=== PATIENT | female | born 1965 | race Caucasian/White ===

== ENCOUNTER 2017-03-07 08:57 | Emergency (ER) | payer SELFPAY ==
[2017-03-07 09:42] LABS: #Basophils 0.1 thou/uL (0.0-0.2); #Eosinphils 0.3 thou/uL (0.0-0.7); #Lymphocytes 2.5 thou/uL (1.20-3.40); #Monocytes 0.8 thou/uL (0.11-0.59); #Neutrophils 9.2 thou/uL (1.40-6.50); %Basophils 0.9 % (0.0-1.0); %Lymphocytes 19.4 % (21.0-51.0); %Monocytes 6.3 % (0.0-10.0); Hematocrit 44.7 % (36.0-47.0); Mean Platelet Volume 9.2 fL (7.4-10.4); Red Blood Cell (RBC) Count 4.87 mill/uL (4.20-5.40); White Blood Cell (WBC) Count 12.8 thou/uL (4.8-10.8)
[2017-03-07 10:05] LABS: ALT (SGPT) 24 U/L (8-55); AST (SGOT) 18 U/L (5-34); Alkaline Phosphatase 130 U/L (40-150); Anion Gap 13 mmol/L (10-20); BUN (Urea Nitrogen) 12 mg/dL (9.8-20.1); Bilirubin, Total 0.4 mg/dL (0.2-1.2); Calc. Creatinine Clearance 0 mL/min (70-130); Calcium 8.9 mg/dL (7.8-10.44); Carbon Dioxide 23 mmol/L (22-29); Chloride 105 mmol/L (98-107); Estimated GFR-MDRD Greater than 90; Globulin 3.3 g/dL (2.4-3.5)
[2017-03-07 10:08] LABS: Bilirubin Negative (Negative); Blood, Urine Large (Negative); Glucose, Urine (Dipstick) Negative (Negative); Ketone, Urine Trace mg/dL (Negative); Nitrite Negative (Negative); Protein, Urine (Dipstick) 100 mg/dL (Neg-Trace)
[2017-03-07 10:10] LABS: Bacteria/HPF Rare-Few HPF (None Seen); Hyaline Casts/LPF 0-3 HYALINE CAST LPF (0-3 Hyaline); RBC/HPF GREATER THAN 50-TNTC HPF (0-3); Squamous Epithelial 0-3 HPF (0-3)
== END 2017-03-07 10:08 | disposition home or self-care (01) ==
LOC: ERS 08:57
DX: N94.6 Dysmenorrhea, unspecified (principal); E66.9 Obesity, unspecified; Z79.899 Other long term (current) drug therapy
CPT/HCPCS: 36415; 80053; 81003; 81015; 85025; 87480; 87491; 87510; 87591; 87660; 99284

== ENCOUNTER 2017-07-13 23:47 | Emergency (ER) | payer SELFPAY ==
[2017-07-14] MEDS ORDERED: Ketorolac Tromethamine 60 MG/2 ML VIAL ONE (00:46)
[2017-07-14] MEDS ORDERED: Dexamethasone 10 MG/ML VIAL ONE (00:46)
== END 2017-07-14 01:22 | disposition home or self-care (01) ==
LOC: ERS 23:47
DX: M54.42 Lumbago with sciatica, left side (principal); E66.9 Obesity, unspecified
CPT/HCPCS: 96372; J1100; J1885

== ENCOUNTER 2018-07-28 20:12 | Inpatient (IN) | payer OTHER, SELFPAY ==
[~2018-07-28 20:12] MED LIST: ISOVUE-370 76%-LOCM 1 ML ONE
--- NOTE | 2018-07-28 20:40 | RAD ---
FEXAM: Portable chest PROVIDED CLINICAL HISTORY: Cough COMPARISON: None FINDINGS: Cardiac and mediastinal silhouette is within normal limits. No focal consolidation, pleural fluid or pneumothorax evident. IMPRESSION: No evidence for an acute cardiopulmonary process.
[2018-07-28 22:05] LABS: #Basophils 0.1 thou/uL (0.0-0.2); #Eosinphils 0.3 thou/uL (0.0-0.7); #Monocytes 0.9 thou/uL (0.11-0.59); %Basophils 0.7 % (0.0-1.0); %Eosinophils 2.5 % (0.0-10.0); %Lymphocytes 19.2 % (21.0-51.0); %Neutrophils 68.6 % (42.0-75.0); Hemoglobin 14.3 g/dL (12.0-16.0); Mean Corpuscular HGB CONC 33.1 g/dL (32.0-36.0); Mean Corpuscular Hemoglobin 28.3 pg (27.0-31.0); Mean Corpuscular Volume 85.4 fL (78.0-98.0); Mean Platelet Volume 9.2 fL (7.4-10.4); Platelet Count 187 thou/uL (130-400); RBC Distribution Width 13.1 % (11.5-14.5); Red Blood Cell (RBC) Count 5.05 mill/uL (4.20-5.40); White Blood Cell (WBC) Count 10.3 thou/uL (4.8-10.8)
[2018-07-28 22:26] LABS: ALT (SGPT) 27 U/L (8-55); AST (SGOT) 29 U/L (5-34); Alkaline Phosphatase 124 U/L (40-150); Anion Gap 13 mmol/L (10-20); BUN (Urea Nitrogen) 19 mg/dL (9.8-20.1); Bilirubin, Total 0.4 mg/dL (0.2-1.2); CK (CPK) 216 U/L (29-168); Calc. Creatinine Clearance 0 mL/min (70-130); Calcium 9.5 mg/dL (7.8-10.44); Carbon Dioxide 26 mmol/L (22-29); Chloride 101 mmol/L (98-107); Estimated GFR-MDRD 71; Globulin 3.5 g/dL (2.4-3.5); Glucose 108 mg/dL (70-105); Lipase 44 U/L (8-78); Potassium 3.8 mmol/L (3.5-5.1); Protein, Total 7.5 g/dL (6.0-8.3); Sodium 136 mmol/L (136-145)
--- NOTE | 2018-07-28 23:39 | CT ---
FEXAM: CT pulmonary angiogram with IV contrast and 3-D MIP reconstruction PROVIDED CLINICAL HISTORY: Cough, chills COMPARISON: None FINDINGS: There is no evidence for central or proximal segmental pulmonary embolus. There is insufficient opaci fication of the distal pulmonary arterial system for evaluation of distal emboli. The heart, pericard ium and great vessels demonstrate an unremarkable CT appearance for the phase of contrast in which th e study was acquired. There is no evidence for thoracic lymph node enlargement. The airway appears patent and of normal ayla iber. There is patchy airspace disease present within the left upper lobe in a parahilar distribution . Lungs appear otherwise free of significant opacity. No pleural fluid or pneumothorax apparent. Degenerative changes are seen involving the thoracic spine. No concerning lytic or blastic osseous le sions are evident. IMPRESSION: 1. No evidence for central or proximal segmental pulmonary embolus. 2. Patchy consolidation involving the left upper lobe, compatible with pneumonia in the appropriate c linical context.
[2018-07-28] MEDS ORDERED: Acetaminophen 500 MG TAB ONE (23:44)
[2018-07-29 01:37] LABS: Bilirubin Negative (Negative); Blood, Urine Negative (Negative); Clarity CLEAR (Clear); Glucose, Urine (Dipstick) Negative (Negative); Leukocyte Negative (Negative); Nitrite Negative (Negative); Protein, Urine (Dipstick) Negative (Neg-Trace); Urobilinogen 0.2 mg/dL (0.2-1.0)
[2018-07-29 01:47] LABS: Specific Gravity, Urine 1.047 (1.002-1.036)
[2018-07-29 05:04] VITALS: BMI 42.8
[2018-07-29] MEDS ORDERED: Ondansetron PF 4 MG/2 ML Vial IVP PRN ×2 (06:28→08:06)
[2018-07-29] MEDS ORDERED: Ondansetron ODT 4 MG TAB SL PRN (06:28)
[2018-07-29] MEDS ORDERED: Dexamethasone 4 mg/ml Vial SLOW IVP SCH (06:30)
[2018-07-29] MEDS ORDERED: Prevnar 13-Val Conj/PF 0.5 ML SYRINGE IM ONE (06:30)
[2018-07-29] MEDS ORDERED: Sodium Chloride 0.9% 1,000 ML IV SCH ×2 (06:30→08:15)
[2018-07-29] MEDS ORDERED: Zolpidem Tartrate 5 MG TAB PO PRN (08:06)
[2018-07-29] MEDS ORDERED: Ondansetron ODT 4 MG TAB PO PRN (08:06)
[2018-07-29] MEDS ORDERED: Acetaminophen 325 MG TAB PO PRN (08:06)
[2018-07-29] MEDS ORDERED: Senokot S 8.6-50 MG TAB PO PRN (08:06)
[2018-07-29] MEDS ORDERED: Guaifenesin DM 100-10/5 ML UDCUP PO PRN (08:06)
[2018-07-29] MEDS ORDERED: hydrOXYzine 25 MG TAB PO PRN (08:11)
[2018-07-29] MEDS: Famotidine 20 MG TAB PO SCH (09:02)
[2018-07-29] MEDS: Enoxaparin Sodium 40 MG/0.4 ML SYRINGE SC SCH (09:03)
[2018-07-29] MEDS: cefTRIAXone\\ROCEPHIN 1 GM in Sodium Chloride 0.9% 100 ML IVPB SCH (09:03)
[2018-07-29] MEDS: Benzonatate 100 MG CAP PO PRN (09:03)
[2018-07-29] MEDS: Azithromycin 500 MG in Sodium Chloride 0.9% 250 ML 250 ML IVPB SCH (10:30)
--- NOTE | 2018-07-29 13:36 | HP ---
PRIMARY CARE PHYSICIAN: Yue Schmitt MD CHIEF COMPLAINT/REASON FOR ADMISSION: "I started throwing up, and having fever. " HISTORY OF PRESENT ILLNESS: Ms. Dowell is a very pleasant 53-year-old female seen in the emergency department at [facility] this evening after developing nausea/vomiting at home as well as worsened fever, in the context of recent treatment for bronchitis. Ms. Dowell has history of eczema, but generally does not have any chronic medical conditions such as diabetes, stroke, cancer, or heart disease. A few weeks ago, she saw Dr. Schmitt for a different purpose, was diagnosed with urinary tract infection as well as ingrown toenail, right great toe. At that time, she received cephalexin and metronidazole. She returned to [facility], she believes around 07/22, complaining of nasal congestion and cough. She was prescribed prednisone and albuterol as well as Phenergan cough syrup. She did not receive an additional course of antibiotics at that time, as her working diagnosis was viral bronchitis. She returned home, took her medications as prescribed, but notes over the last 2 days, her energy level has been poor. She has not felt like eating much. Yesterday after lunch time, she began having nausea, subsequently vomited 7 to 8 times. She noted her temperature curve at home was increasing, and proceeded to the emergency department. Initial chest x-ray showed no evidence of acute infiltrate. A subsequent CT scan of the chest was performed, no evidence of thromboembolic disease. However, on that study, she was noted to have left upper lobe infiltrate compatible with community-acquired pneumonia. She was subsequently admitted to the hospital for additional evaluation and care. At the time of my evaluation this morning, she states her nausea has improved, and she is eager to try to eat breakfast. Cough has been unchanged. She recalls in the past, intermittent episodes of bronchitis, one of which had become so severe that she had lung injury/rib injury from severe coughing. She worries about recurrence of the same. She is a lifelong nonsmoker. She does not use nebulizers at home on a routine basis, but was prescribed ProAir HFA at her last appointment with Dr. Schmitt when she was diagnosed with viral bronchitis. She endorses "a little shortness of breath," cough is becoming more productive this morning, yellow sputum noted. She does not currently require oxygen. She also feels that her tongue and throat are sore and swollen, which is somewhat new in the last 24 hours. Her temperature per the patient in the emergency room on presentation was 99.8 orally. The patient had recalled her temperature at home, up to 103. A followup temperature noted in the emergency department did document 101.4 orally. PAST MEDICAL HISTORY: 1. Previous history of bronchitis, recalls several episodes since the age of 12 or so. 2. History of obesity. 3. Eczema, primarily affecting her lower extremities bilaterally. 4. Gastroesophageal reflux disease. PAST SURGICAL HISTORY: 1. Partial tubal ligation, many years ago. 2. History of orthopedic surgery, broken right elbow, after being kicked by a horse. 3. History of left rib fractures, after the same trauma of being kicked by a horse. MEDICATIONS: Her current medication list; 1. Tessalon Perles 100 mg p.o. t.i.d. p.r.n. cough. 2. Ranitidine 300 mg p.o. once daily. 3. Proventil HFA one puff q.4 hours p.r.n. shortness of breath. 4. Hydroxyzine 1 tablet p.o. daily p.r.n. itching or anxiety. ALLERGIES: INCLUDE BACTRIM AND HYDROCODONE. SOCIAL HISTORY: The patient has been for over 30 years. She is currently disabled. 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 She rarely drinks alcohol, perhaps once or twice every 6 months. She is a lifelong nonsmoker. FAMILY HISTORY: Mother of complications of cancer of the throat. Father is alive, his medical history is unknown by the patient. REVIEW OF SYSTEMS: A full review of systems reviewed, addressed, negative except otherwise as mentioned. Pertinent negatives include negative diarrhea, negative chest pain at this time. She does endorse some chest discomfort, but only with coughing. PHYSICAL EXAMINATION: VITAL SIGNS: ER vital signs reviewed. Blood pressure 142/74, heart rate 98, temperature 99.8 orally, respiratory rate 18. Additional ER vital signs a bit later in her course included blood pressure 136/45, pulse 118, respiratory rate 18, and temperature 101.4. Vital signs this morning, temperature 98.5; respiratory rate documented at 20 on the vital signs, on my count is 12; saturating 95% on room air; and blood pressure 132/71. GENERAL: She is awake and alert. She is able to give a good history. She is able to speak in full phrases, becomes winded with extended sentences. HEENT: Eyes; no conjunctival injection. No scleral icterus. Oropharynx; clear, some posterior erythema present in the throat. No obvious swelling noted. No exudate present. LUNGS: Aeration is fair bilaterally. No expiratory wheezing auscultated. Work of breathing is not labored. HEART: Regular rate and rhythm. ABDOMEN: Soft, nontender, and nondistended. EXTREMITIES: Warm, well perfused. No clubbing, cyanosis, or edema. SKIN: Plaques of eczema present particularly in the left lower extremity. Additionally, her right great toe has a healing area of incision from previous ingrown toenail. NEUROLOGIC: She is able to move all extremities bilaterally and to command, no focal deficits. LABORATORY/DATA REVIEW: I personally reviewed her chest x-ray, no evidence of infiltrate on plain film. Her CT chest does show evidence of left upper lobe infiltrate, no evidence of thromboembolic disease. Her laboratory evaluation includes a white blood cell count of 10.3, hemoglobin 14.3, platelet count of 187. Chemistry panel reviewed, glucose 108, creatine kinase 216. A urine Legionella antigen has been added to her laboratory workup. D-dimer greater than 20. IMPRESSION: 1. Community-acquired pneumonia, left upper lobe. 2. Gastroesophageal reflux disease. 3. Nausea/vomiting, in the context of respiratory illness. PLAN/RECOMMENDATIONS: 1. Pulmonary - placed on treatment for community-acquired pneumonia, include Rocephin and azithromycin. DuoNeb 3 times daily scheduled and q.2 hours hourly p.r.n. Hold on steroids at this time, appears to be more compatible with lobar pneumonia rather than bronchitis. Continue to monitor oxygen requirements, presently stable on room air. Antitussives have also been ordered for symptomatic relief of cough. Add urinary Legionella antigen in the context of primarily GI presentation of respiratory illness. We will add influenza swab for completeness, though her history is less compatible with this entity. 2. GI - resume home ranitidine. 3. DVT prophylaxis - daily Lovenox has been ordered. 4. Fluids, electrolytes, nutrition - additional 1 L IV fluid, normal saline ordered. Trial of regular diet as tolerated. Morning labs also ordered. At this time, anticipate inpatient hospital stay for duration of 2 or 3 days. This will be pending her clinical course. In addition, high risk, particularly given nausea/vomiting, will need to determine if the patient can tolerate oral antibiotics at discharge. Job ID: [id number] MTDD
[2018-07-29 13:50] LABS: Legionella Urinary Ag Negative (Negative)
[2018-07-29] MEDS: guaiFENesin/Codeine Phosphate 200 mg/20 mg 10 ml UD Cup PO PRN (18:39)
[2018-07-30] MEDS: Benzonatate 100 MG CAP PO PRN ×2 (00:31→06:18)
[2018-07-30] MEDS: guaiFENesin/Codeine Phosphate 200 mg/20 mg 10 ml UD Cup PO PRN ×3 (04:20→18:11)
[2018-07-30 07:05] LABS: #Eosinphils 0.1 thou/uL (0.0-0.7); #Lymphocytes 2.4 thou/uL (1.20-3.40); #Monocytes 1.1 thou/uL (0.11-0.59); #Neutrophils 8.5 thou/uL (1.40-6.50); %Basophils 0.3 % (0.0-1.0); %Eosinophils 0.5 % (0.0-10.0); %Lymphocytes 20.1 % (21.0-51.0); Hemoglobin 13.5 g/dL (12.0-16.0); Mean Corpuscular HGB CONC 31.7 g/dL (32.0-36.0); Mean Corpuscular Hemoglobin 27.7 pg (27.0-31.0); Mean Corpuscular Volume 87.6 fL (78.0-98.0); Mean Platelet Volume 9.9 fL (7.4-10.4); Platelet Count 199 thou/uL (130-400); RBC Distribution Width 13.1 % (11.5-14.5); Red Blood Cell (RBC) Count 4.86 mill/uL (4.20-5.40); White Blood Cell (WBC) Count 12.1 thou/uL (4.8-10.8)
[2018-07-30 07:24] LABS: Anion Gap 14 mmol/L (10-20); BUN (Urea Nitrogen) 16 mg/dL (9.8-20.1); Calc. Creatinine Clearance 146 mL/min (70-130); Calcium 9.6 mg/dL (7.8-10.44); Carbon Dioxide 26 mmol/L (22-29); Chloride 103 mmol/L (98-107); Estimated GFR-MDRD 78; Glucose 220 mg/dL (70-105); Sodium 139 mmol/L (136-145)
[2018-07-30] MEDS: Enoxaparin Sodium 40 MG/0.4 ML SYRINGE SC SCH (08:24)
[2018-07-30] MEDS: Famotidine 20 MG TAB PO SCH (08:25)
[2018-07-30] MEDS: cefTRIAXone\\ROCEPHIN 1 GM in Sodium Chloride 0.9% 100 ML IVPB SCH (11:21)
[2018-07-30] MEDS: Saccharomyces boulardii 250 MG CAP PO SCH (11:21)
[2018-07-30] MEDS: Azithromycin 500 MG in Sodium Chloride 0.9% 250 ML 250 ML IVPB SCH (11:22)
--- NOTE | 2018-07-30 18:36 | PDOC.PN ---
- Subjective Encounter Start Date: 07/30/18 Encounter Start Time: 12:00 Patient seen and examined for Pneumonia. Feels better. Cough with some production. No new complaints. No overnight events - Objective Resuscitation Status - Order Detail: 07/29/18 08:06 Resuscitation Status Routine Resuscitation Status: FULL: Full Resuscitation MAR Reviewed: Yes Vital Signs & Weight: Weight Weight 242 lb I&O: 07/29/18 07/30/18 07/31/18 06:59 06:59 06:59 Intake Total 210 800 Balance 210 800 Result Diagrams: 07/30/18 06:40 07/30/18 06:40 Radiology Reviewed by me: Yes (CT - EMMA pneumonia) Phys Exam - Physical Examination Constitutional: NAD Respiratory: no wheezing Rhonchi over the left lobe Cardiovascular: RRR, no rub Gastrointestinal: soft, non-tender, positive bowel sounds Musculoskeletal: no edema Dx/Plan - Plan DVT proph w/SCDs 1. EMMA Pneumonia ?Pneumonia 2. Morbid obesity BMI 42.9 3. CKD 2 4. GERD 5. Hyperglycemia - prob due to IV Steroids in ER PLAN: Cont IV Atbx Add Nebs Cont other meds as below AM labs A1c in AM DC in 24-48 hr if stable Review of Systems - Review of Systems Respiratory: Cough, Dry, Sputum. negative: Shortness of Breath, Hemoptysis, SOB with Excertion, Pleuritic Pain, Wheezing Cardiovascular: negative: chest pain, palpitations, orthopnea, paroxysmal nocturnal dyspnea, edema, light headedness, other Gastrointestinal: negative: Nausea, Vomiting, Abdominal Pain, Diarrhea, Constipation, Melena, Hematochezia, Other - Medications/Allergies Allergies/Adverse Reactions: Allergies Allergy/AdvReac Type Severity Reaction Status Date / Time hydrocodone Allergy Intermediate Verified 07/29/18 05:22 sulfamethoxazole Allergy Intermediate Verified 07/29/18 05:22 [From Bactrim] trimethoprim [From Bactrim] Allergy Verified 07/29/18 05:22 Medications: Current Medications Acetaminophen (Tylenol) 650 mg PO Q4H PRN PRN Reason: Headache/Fever/Mild Pain (1-3) Last Admin: 07/30/18 00:35 Dose: 650 mg Albuterol/Ipratropium (Duoneb) 3 ml NEB [id number] PRN PRN Reason: SOB &/or Wheezing Benzonatate (Tessalon) 100 mg PO TID PRN PRN Reason: Cough Last Admin: 07/30/18 06:18 Dose: 100 mg Famotidine (Pepcid) 40 mg PO DAILY [facility] Last Admin: 07/30/18 08:25 Dose: Not Given Guaifenesin (Mucinex) 600 mg PO Q12HR [facility] Guaifenesin/Codeine Phosphate (Robitussin Ac) 10 ml PO Q6H PRN PRN Reason: cough not responsive to other Last Admin: 07/30/18 18:11 Dose: 10 ml Guaifenesin/Dextromethorphan (Robitussin Dm) 15 ml PO Q4H PRN PRN Reason: Cough Last Admin: 07/30/18 00:31 Dose: 15 ml Hydroxyzine HCl (Atarax) 25 mg PO Q8H PRN PRN Reason: Itching Azithromycin 500 mg/ Sodium (Chloride) 250 mls @ 250 mls/hr IVPB 0900 [facility] Last Admin: 07/30/18 11:22 Dose: 250 mls Ceftriaxone Sodium 1 gm/ (Sodium Chloride) 100 mls @ 200 mls/hr IVPB 1000 [facility] Last Admin: 07/30/18 11:21 Dose: 100 mls Ondansetron HCl (Zofran Odt) 4 mg PO Q6H PRN PRN Reason: Nausea/Vomiting Ondansetron HCl (Zofran) 4 mg IVP Q6H PRN PRN Reason: Nausea/Vomiting Saccharomyces Boulardii (Florastor) 250 mg PO DAILY [facility] Last Admin: 07/30/18 11:21 Dose: 250 mg Senna/Docusate Sodium (Senokot S) 2 tab PO BID PRN PRN Reason: Constipation Zolpidem Tartrate (Ambien) 5 mg PO HSPRN PRN PRN Reason: Insomnia
[2018-07-30] MEDS: guaiFENesin ER 600 MG TAB PO SCH (20:35)
[2018-07-31 06:27] LABS: #Basophils 0.1 thou/uL (0.0-0.2); #Eosinphils 0.4 thou/uL (0.0-0.7); #Lymphocytes 4.5 thou/uL (1.20-3.40); #Monocytes 0.8 thou/uL (0.11-0.59); %Basophils 0.9 % (0.0-1.0); %Eosinophils 2.9 % (0.0-10.0); %Monocytes 6.2 % (0.0-10.0); Hemoglobin 12.5 g/dL (12.0-16.0); Mean Corpuscular HGB CONC 31.6 g/dL (32.0-36.0); Mean Corpuscular Hemoglobin 27.9 pg (27.0-31.0); Mean Corpuscular Volume 88.1 fL (78.0-98.0); Mean Platelet Volume 9.4 fL (7.4-10.4); Platelet Count 168 thou/uL (130-400); RBC Distribution Width 13.4 % (11.5-14.5); Red Blood Cell (RBC) Count 4.47 mill/uL (4.20-5.40); White Blood Cell (WBC) Count 12.7 thou/uL (4.8-10.8)
[2018-07-31 06:35] LABS: Hemoglobin A1c 5.6 % (4.0-6.0)
[2018-07-31 06:48] LABS: Anion Gap 9 mmol/L (10-20); BUN (Urea Nitrogen) 17 mg/dL (9.8-20.1); Calc. Creatinine Clearance 163 mL/min (70-130); Calcium 8.7 mg/dL (7.8-10.44); Carbon Dioxide 28 mmol/L (22-29); Chloride 108 mmol/L (98-107); Estimated GFR-MDRD 88; Glucose 107 mg/dL (70-105); Magnesium 1.6 mg/dL (1.6-2.6); Potassium 4.2 mmol/L (3.5-5.1); Sodium 141 mmol/L (136-145)
[2018-07-31] MEDS: Famotidine 20 MG TAB PO SCH (08:15)
[2018-07-31] MEDS: Saccharomyces boulardii 250 MG CAP PO SCH (08:15)
[2018-07-31] MEDS: guaiFENesin ER 600 MG TAB PO SCH (08:15)
[2018-07-31] MEDS: Azithromycin 500 MG in Sodium Chloride 0.9% 250 ML 250 ML IVPB SCH (08:47)
[2018-07-31] MEDS: cefTRIAXone\\ROCEPHIN 1 GM in Sodium Chloride 0.9% 100 ML IVPB SCH (11:39)
--- NOTE | 2018-07-31 11:56 | DIS ---
DATE OF ADMISSION: 07/28/2018 DATE OF DISCHARGE: 07/31/2018 DISCHARGE DISPOSITION: Home. FOLLOWUP: 1. Follow up with primary care physician, Dr. Callahan in 1 week. 2. Repeat chest x-ray after 4 weeks is recommended. Primary care physician advised to follow. DISCHARGE MEDICATIONS: 1. Omnicef 300 mg twice daily, #10. 2. Azithromycin 250 mg daily, #5. 3. Mucinex 600 mg twice a day. 4. All other home medications were left unchanged. BRIEF HOSPITAL COURSE: The patient is a 53-year-old female with recent upper respiratory tract infection, presented to the hospital on July 28, 2018, with fever and cough. Her workup was consistent with left upper lobe community-acquired pneumonia. She was started on ceftriaxone with azithromycin along with nebulizer treatment and expectorant with good improvement. She has been afebrile over the last 24 hours. WBC count on admission was 10.3, at discharge is 12.7. There is no left shift. Leukocytosis is probably secondary to recent steroid use. She also received one dose of IV steroids in the emergency room. Her blood culture remained negative. Influenza screen was negative. CT angiogram of the chest done in the emergency room was negative for pulmonary embolism. It showed left upper lobe pneumonia. PLAN: Plan of care was discussed with the patient and the family. They stated understanding. FINAL DIAGNOSES: 1. Left upper lobe pneumonia, suspected pneumococcal. 2. Morbid obesity with a BMI of 42.9. 3. Chronic kidney disease, stage 2. 4. Gastroesophageal reflux disease. 5. Hyperglycemia due to steroid use. A1c was 5.6. Plan of care was discussed with the patient in detail. They stated understanding. Job ID: [id number]
[2018-07-31 12:53] VITALS: BP 135/83; TEMP 98.1
== END 2018-07-31 13:17 | disposition home or self-care (01) | DRG 194 ==
LOC: ERS 20:12 → ERHOLD 23:55 → T4-B 23:55
PROVIDERS: ADMIT Internal Medicine; ATTEND Internal Medicine
DX: J13 Pneumonia due to Streptococcus pneumoniae (principal); Z68.41 Body mass index [BMI] 40.0-44.9, adult; E66.01 Morbid (severe) obesity due to excess calories; N18.2 Chronic kidney disease, stage 2 (mild); K21.9 Gastro-esophageal reflux disease without esophagitis; R73.9 Hyperglycemia, unspecified; T38.0X5A Adverse effect of glucocorticoids and synthetic analogues, initial encounter; Z88.1 Allergy status to other antibiotic agents; Z88.5 Allergy status to narcotic agent
CPT/HCPCS: 36415; 71045; 71275; 80048; 80053; 81003; 82550; 83036; 83605; 83690; 83735; 83880; 84484; 85025; 85379; 87040; 87804; 87899; 93005; 94640; J0456; J0696; J1100; J1650; J1956; J7050; J7620; Q9966

== ENCOUNTER 2019-04-24 14:13 | Emergency (ER) | payer SELFPAY ==
[2019-04-24 15:26] LABS: Bilirubin Negative (Negative); Blood, Urine Negative (Negative); Clarity Clear (Clear); Glucose, Urine (Dipstick) Normal (Negative); Leukocyte Negative Leu/uL (Negative); Nitrite Negative (Negative); Protein, Urine (Dipstick) Negative (Neg-Trace); Urobilinogen Normal mg/dL (Less than 2)
== END 2019-04-24 15:50 | disposition home or self-care (01) ==
LOC: ERS 14:13
DX: J04.0 Acute laryngitis (principal); E66.9 Obesity, unspecified; F41.9 Anxiety disorder, unspecified
CPT/HCPCS: 81003; 87804; 99283

== ENCOUNTER 2019-12-31 19:48 | Emergency (ER) | payer OTHER ==
[~2019-12-31 19:48] MED LIST changes: -ISOVUE-370 76%-LOCM 1 ML ONE; +Iopamidol-370 76% 500 ML 1 ML ONE
[2019-12-31] MEDS ORDERED: Boostrix 0.5 ML VIAL ONE (19:54)
[2019-12-31 20:17] LABS: #Basophils 0.1 thou/uL (0.0-0.2); #Eosinphils 0.2 thou/uL (0.0-0.7); #Lymphocytes 3.3 thou/uL (1.20-3.40); #Neutrophils 11.5 thou/uL (1.40-6.50); %Basophils 0.8 % (0.0-1.0); %Lymphocytes 20.4 % (21.0-51.0); %Monocytes 5.9 % (0.0-10.0); %Neutrophils 71.9 % (42.0-75.0); Hemoglobin 14.3 g/dL (12.0-16.0); Mean Corpuscular HGB CONC 32.4 g/dL (32.0-36.0); Mean Corpuscular Hemoglobin 28.1 pg (27.0-31.0); Mean Corpuscular Volume 86.7 fL (78.0-98.0); Mean Platelet Volume 10.4 fL (7.4-10.4); Platelet Count 231 thou/uL (130-400); RBC Distribution Width 12.6 % (11.5-14.5); Red Blood Cell (RBC) Count 5.09 mill/uL (4.20-5.40)
[2019-12-31 20:20] LABS: INR-International Normal Ratio 0.9; PTT 31.5 sec (22.9-36.1); Prothrombin Time 11.7 sec (12.0-14.7)
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
[2019-12-31 20:47] LABS: ALT (SGPT) 19 U/L (8-55); AST (SGOT) 19 U/L (5-34); Alcohol Less than 10 mg/dL (Less than 10); Alkaline Phosphatase 146 U/L (40-110); Anion Gap 18 mmol/L (10-20); BUN (Urea Nitrogen) 17 mg/dL (9.8-20.1); Bilirubin, Total 0.2 mg/dL (0.2-1.2); Calc. Creatinine Clearance 0 mL/min (70-130); Calcium 8.9 mg/dL (7.8-10.44); Carbon Dioxide 22 mmol/L (22-29); Chloride 101 mmol/L (98-107); Estimated GFR-MDRD 55; Globulin 3.4 g/dL (2.4-3.5); Glucose 170 mg/dL (70-105); Lipase 43 U/L (8-78); Potassium 4.2 mmol/L (3.5-5.1); Protein, Total 7.4 g/dL (6.0-8.3); Sodium 137 mmol/L (136-145)
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
[2019-12-31] MEDS ORDERED: Morphine 4 MG/ML VIAL ONE (21:05)
[2019-12-31] MEDS ORDERED: Lidocaine 1% w/Epinephrine 1:100K 20 ML VIAL ONE (21:10)
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
[2019-12-31] MEDS ORDERED: Bacitracin 1 PK ONE (22:38)
[2019-12-31 23:13] LABS: Lactic Acid 2.6 mmol/L (0.5-2.2)
== END 2019-12-31 23:26 | disposition home or self-care (01) ==
LOC: ERS 19:48
DX: S06.0X0A Concussion without loss of consciousness, initial encounter (principal); S01.01XA Laceration without foreign body of scalp, initial encounter; R93.7 Abnormal findings on diagnostic imaging of other parts of musculoskeletal system; E66.9 Obesity, unspecified; K76.0 Fatty (change of) liver, not elsewhere classified; I10 Essential (primary) hypertension; F41.9 Anxiety disorder, unspecified; Z23 Encounter for immunization; Z79.899 Other long term (current) drug therapy; V54.5XXA Driver of pick-up truck or van injured in collision with heavy transport vehicle or bus in traffic accident, initial encounter
CPT/HCPCS: 12004; 36415; 70450; 71045; 71260; 72125; 74177; 80053; 80307; 83605; 83690; 85025; 85610; 85730; 86850; 86900; 86901; 90471; 90715; 93005; 96361; 96374; G0390; J0690; J2270; Q9967

== ENCOUNTER 2020-01-05 20:06 | Emergency (ER) | payer OTHER ==
[2020-01-05] MEDS ORDERED: Acetaminophen/Codeine 30-300mg Tablet ONE ×2 (20:32→20:33)
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
== END 2020-01-05 21:36 | disposition home or self-care (01) ==
LOC: ERS 20:06
DX: S00.83XA Contusion of other part of head, initial encounter (principal); M50.21 Other cervical disc displacement, high cervical region; F41.9 Anxiety disorder, unspecified; Z79.899 Other long term (current) drug therapy; V89.2XXA Person injured in unspecified motor-vehicle accident, traffic, initial encounter
CPT/HCPCS: 70486

== ENCOUNTER 2020-01-29 22:33 | Emergency (ER) | payer OTHER ==
[2020-01-29] MEDS ORDERED: Meclizine HCl 25 MG TAB ONE (23:27)
--- NOTE | 2020-01-30 08:10 | CT ---
CT HEAD WITHOUT CONTRAST: INDICATION: Headache and dizziness. COMPARISON: Comparison is made to recent head CT of 12/31/2019. FINDINGS: Ventricles remain normal size and position. There is no evidence of intracranial hemorrhage. There is no evidence of intracranial mass, edema, or infarct. Paranasal sinuses are clear. IMPRESSION: No acute process. No interval change from recent exam. POS: AGW
== END 2020-01-30 00:22 | disposition home or self-care (01) ==
LOC: ERS 22:33
DX: F07.81 Postconcussional syndrome (principal); E66.9 Obesity, unspecified; F41.9 Anxiety disorder, unspecified; Z87.01 Personal history of pneumonia (recurrent); Z79.899 Other long term (current) drug therapy
CPT/HCPCS: 70450

== ENCOUNTER 2020-09-18 13:54 | Outpatient (CLI) | payer SELFPAY ==
[2020-09-18 15:58] LABS: Hemoglobin 12.8 g/dL (12.0-15.5); Mean Corpuscular HGB CONC 31.3 g/dL (32.0-36.0); Mean Corpuscular Hemoglobin 27.2 pg (27.0-33.0); Mean Corpuscular Volume 86.8 fl (81.6-98.3); Mean Platelet Volume 12.4 fl (7.4-10.4); Platelet Count 219 10x3/uL (150-450); RBC Distribution Width 13.3 % (11.5-14.5); Red Blood Cell (RBC) Count 4.71 10x6/uL (3.90-5.03); White Blood Cell (WBC) Count 10.4 10x3/uL (3.5-10.5)
[2020-09-18 16:14] LABS: Anion Gap 15 mmol/L (10-20); BUN (Urea Nitrogen) 10 mg/dL (9.8-20.1); Calc. Creatinine Clearance 0 mL/min (70-130); Calcium 9.4 mg/dL (7.8-10.44); Carbon Dioxide 28 mmol/L (22-29); Chloride 101 mmol/L (98-107); Glucose 174 mg/dL (70-105); Potassium 4.2 mmol/L (3.5-5.1); Sodium 140 mmol/L (136-145)
[2020-09-19 00:46] LABS: SARS-CoV-2 PCR by NAA Not Detected (NotDetected)
== END 2020-09-18 13:55 | disposition home or self-care (01) ==
LOC: LABBT 13:54
PROVIDERS: ATTEND Orthopaedic Surgery
DX: Z01.818 Encounter for other preprocedural examination (principal); M75.102 Unspecified rotator cuff tear or rupture of left shoulder, not specified as traumatic; M75.42 Impingement syndrome of left shoulder; Z20.822 Contact with and (suspected) exposure to COVID-19
CPT/HCPCS: 80048; 85027; 87635; U0003; U0005

== ENCOUNTER 2020-09-21 10:03 | Day surgery (SDC) | payer OTHER ==
[2020-09-19 15:56] VITALS: BMI 39.4
[2020-09-21] MEDS ORDERED: Midazolam HCl 2 mg/2 ml Vial ONE (12:10)
[2020-09-21] MEDS ORDERED: Fentanyl 100 MCG/2 ML VIAL ONE ×2 (12:10→12:58)
[2020-09-21] MEDS ORDERED: Dexmedetomidine 200 MCG/2 ML VIAL ONE (12:59)
[2020-09-21] MEDS ORDERED: EPINEPHrine 1 MG/ML AMP ONE (13:00)
[2020-09-21] MEDS ORDERED: Bupivacaine 0.25% HCL 30 ML VIAL ONE (13:00)
[2020-09-21] MEDS ORDERED: Ropivacaine 2% HCl/PF (20 MG/10 ML VIAL) ONE (13:25)
[2020-09-21] MEDS ORDERED: Metoclopramide HCl 10 MG/2 ML VIAL ONE (13:25)
[2020-09-21] MEDS ORDERED: Dexamethasone 20 MG/5 ML VIAL ONE (13:25)
[2020-09-21] MEDS ORDERED: Ondansetron PF 4 MG/2 ML Vial ONE (13:25)
[2020-09-21] MEDS ORDERED: Albuterol Sulfate HFA (OR ONLY) ONE (13:25)
[2020-09-21] MEDS ORDERED: Rocuronium Bromide 10 MG/ML (10ML VIAL) ONE (13:25)
[2020-09-21] MEDS ORDERED: Ropivacaine 0.5% HCl/PF (150 MG/30 ML VIAL) ONE (13:25)
[2020-09-21] MEDS ORDERED: Lidocaine 1% PF 5 ML VIAL ONE ×2 (13:25)
[2020-09-21] MEDS ORDERED: PROPOFOL 200 MG/20 ML VIAL ONE (13:25)
[2020-09-21] MEDS ORDERED: Ketorolac Tromethamine 30 MG/ML VIAL IVP PRN (13:45)
[2020-09-21] MEDS ORDERED: Ondansetron PF 4 MG/2 ML Vial IVP PRN (13:45)
[2020-09-21] MEDS ORDERED: Zolpidem Tartrate 5 MG TAB PO PRN (13:45)
[2020-09-21] MEDS ORDERED: traMADol HCl 50 MG TAB PO PRN ×2 (13:45)
[2020-09-21] MEDS ORDERED: Ropivacaine 0.2% 550 ML 550 ML NERVE BLCK SCH (13:45)
[2020-09-21] MEDS ORDERED: Promethazine HCl 25 MG/ML VIAL IM PRN (13:45)
[2020-09-21] MEDS ORDERED: SUGAMMADEX SODIUM 200 MG/2 ML VIAL ONE (14:03)
== END 2020-09-21 16:08 | disposition home or self-care (01) ==
LOC: SDC 10:03
PROVIDERS: ATTEND Orthopaedic Surgery
PROC: 3E0T3BZ Introduction of Anesthetic Agent into Peripheral Nerves and Plexi, Percutaneous Approach (ICD-10-PCS; principal; 2020-09-21)
PROC: 0LQ24ZZ Repair Left Shoulder Tendon, Percutaneous Endoscopic Approach (ICD-10-PCS; principal; 2020-09-21)
PROC: 0RNK4ZZ Release Left Shoulder Joint, Percutaneous Endoscopic Approach (ICD-10-PCS; principal; 2020-09-21)
DX: M75.102 Unspecified rotator cuff tear or rupture of left shoulder, not specified as traumatic (principal); M65.812 Other synovitis and tenosynovitis, left shoulder; M75.42 Impingement syndrome of left shoulder; M19.012 Primary osteoarthritis, left shoulder; G89.18 Other acute postprocedural pain; I10 Essential (primary) hypertension; E11.9 Type 2 diabetes mellitus without complications; Z79.84 Long term (current) use of oral hypoglycemic drugs; Z79.899 Other long term (current) drug therapy; Z88.1 Allergy status to other antibiotic agents; Z88.2 Allergy status to sulfonamides; Z88.5 Allergy status to narcotic agent; V89.2XXA Person injured in unspecified motor-vehicle accident, traffic, initial encounter
CPT/HCPCS: A4306; J0171; J0690; J1100; J2250; J2405; J2704; J2765; J2795; J3010; S0020

== ENCOUNTER 2023-04-07 10:51 | Emergency (ER) | payer OTHER, SELFPAY ==
[2023-04-07] MEDS ORDERED: Ketorolac Tromethamine 30 MG/ML VIAL ONE (12:23)
[2023-04-07] MEDS ORDERED: Ipratropium/Albuterol 3 ML NEB ONE (12:47)
[2023-04-07 13:00] LABS: #Basophils 0.1 thou/uL (0.0-0.2); #Eosinphils 0.1 thou/uL (0.0-0.7); #Monocytes 0.5 thou/uL (0.11-0.59); #Neutrophils 11.8 thou/uL (1.40-6.50); %Basophils 0.6 % (0.0-1.0); %Eosinophils 0.8 % (0.0-10.0); %Lymphocytes 10.8 % (21.0-51.0); %Monocytes 3.7 % (0.0-10.0); %Neutrophils 82.1 % (42.0-75.0); Hematocrit 43.4 % (36.0-47.0); Hemoglobin 14.1 g/dL (12.0-16.0); Mean Corpuscular HGB CONC 32.5 g/dL (32.0-36.0); Mean Corpuscular Hemoglobin 28.3 pg (27.0-31.0); Mean Platelet Volume 12.1 fL (7.4-10.4); Platelet Count 219 10x3/uL (130-400); RBC Distribution Width 13.1 % (11.5-14.5); Red Blood Cell (RBC) Count 4.99 mill/uL (4.20-5.40); White Blood Cell (WBC) Count 14.3 10x3/uL (4.8-10.8)
[2023-04-07 13:26] LABS: ALT (SGPT) 35 U/L (8-55); AST (SGOT) 23 U/L (5-34); Albumin 3.5 g/dL (3.5-5.0); Alkaline Phosphatase 122 U/L (40-110); Anion Gap 16 mmol/L (10-20); BUN (Urea Nitrogen) 18 mg/dL (9.8-20.1); Bilirubin, Total 0.3 mg/dL (0.2-1.2); Calc. Creatinine Clearance 0 mL/min (70-130); Calcium 9.2 mg/dL (7.8-10.44); Carbon Dioxide 26 mmol/L (22-29); Chloride 97 mmol/L (98-107); Estimated GFR 72; Globulin 2.9 g/dL (2.4-3.5); Potassium 4.6 mmol/L (3.5-5.1); Protein, Total 6.4 g/dL (6.0-8.3); Sodium 134 mmol/L (136-145)
[2023-04-07 13:29] LABS: Troponin I Less than 0.010 ng/mL (< 0.028)
[2023-04-07 13:39] LABS: Glucose 457 mg/dL (70-105)
[2023-04-07] MEDS ORDERED: HumaLOG 300 UNITS/3 ML VIAL ONE (13:56)
== END 2023-04-07 14:22 | disposition home or self-care (01) ==
LOC: ERS 10:51
DX: J02.9 Acute pharyngitis, unspecified (principal); B97.4 Respiratory syncytial virus as the cause of diseases classified elsewhere
CPT/HCPCS: 71045; 80053; 83880; 84484; 85025; 93005; 96361; 96374; J1815; J1885; J7620